=== PATIENT | female | born 1935 | race African-American/Black ===

== ENCOUNTER 2020-12-08 15:32 | Inpatient (IN) | payer MEDICARE, MEDICAID ==
[~2020-12-08] VITALS: Ht 162.6 cm; Wt 52.2 kg
[2020-12-08 16:23] LABS: BASOPHILS % 0.7 % (0.0-2.0); EOSINOPHILS % 0.1 % (0.0-5.0); HEMATOCRIT. 30.5 % (36.0-48.0); LYMPHOCYTES % 35.1 % (20.0-50.0); MEAN CORPUSCULAR VOLUME 94.9 fL (81.0-99.0); MONOCYTES % 10.7 % (2.0-8.0); NEUTROPHILS % 53.4 % (40.0-76.0); PLATELET 221 x1000/uL (130-400); RED BLOOD CELL COUNT 3.21 mill/uL (4.2-5.4); RED CELL DISTRIBUTION WIDTH 13.6 % (11.6-14.6)
[2020-12-08 16:27] LABS: CHLORIDE 112 mEq/L (98-107)
[2020-12-08] MEDS ORDERED: ATROPINE SULFATE 1MG/ML VIAL IV ONE (17:15)
[2020-12-08] MEDS ORDERED: PANTOPRAZOLE 80 MG in SODIUM CHLORIDE 0.9% 100 ML IV SCH ×2 (18:00→18:15)
[2020-12-08] MEDS ORDERED: NITROGLYCERIN 0.4MG TABLET SL SL PRN (18:15)
[2020-12-08] MEDS ORDERED: MORPHINE SULFATE 2 MG/ML CPJ (NOT FOR IM USE) IV PRN (18:15)
[2020-12-08] MEDS ORDERED: GUAIFENESIN 200MG/10ML SUGAR FREE UDC PO PRN (18:15)
[2020-12-08] MEDS ORDERED: IPRATROPIUM/ALBUTEROL 0.5-3(2.5)MG/3ML NEB NEB PRN (18:15)
[2020-12-08] MEDS ORDERED: ACETAMINOPHEN 325MG TABLET PO PRN ×2 (18:15)
[2020-12-08] MEDS: DEXT 5%/LACTATED RINGERS 1,000 ML IV SCH (18:15)
[2020-12-08] MEDS ORDERED: ONDANSETRON HCL 4MG/2ML INJ IV PRN (18:15)
[2020-12-08] MEDS ORDERED: ZOLPIDEM TARTRATE 5MG TABLET PO PRN (18:15)
[2020-12-08] MEDS ORDERED: MAGNESIUM/ALUMINUM HYDROXIDE/SIMETHICONE 30ML UDC PO PRN (18:15)
[2020-12-08 18:53] LABS: TOTAL IRON BINDING CAPACITY 312 ug/dL (250-450)
[2020-12-08] MEDS: PANTOPRAZOLE 80 MG in SODIUM CHLORIDE 0.9% 100 ML IV SCH (18:59)
[2020-12-08] MEDS ORDERED: PANTOPRAZOLE SODIUM 40 MG/VIAL IV ONE ×2 (19:02→20:32)
[2020-12-08 19:07] LABS: FOLIC ACID (FOLATE) SERUM 10.3 ng/mL (>5.38)
[2020-12-08] MEDS ORDERED: NALOXONE HCL 0.4MG/ML VIAL IV PRN (20:45)
[2020-12-09] VITALS (16 sets, daily range): BP systolic 89–162; BP diastolic 39–121
[2020-12-09] MEDS: PANTOPRAZOLE 80 MG in SODIUM CHLORIDE 0.9% 100 ML IV SCH ×2 (04:21→15:49)
[2020-12-09 04:56] LABS: CHLORIDE 120 mEq/L (98-107)
[2020-12-09 05:00] LABS: BASOPHILS % 0.2 % (0.0-2.0); EOSINOPHILS % 0.1 % (0.0-5.0); HEMATOCRIT. 22.4 % (36.0-48.0); HEMOGLOBIN. 7.6 g/dL (12.0-16.0); MEAN CORPUSCULAR HEMOGLOBIN 30.4 pg (28.0-32.0); MEAN CORPUSCULAR VOLUME 89.6 fL (81.0-99.0); MEAN PLATELET VOLUME 7.6 fl (7.4-10.4); MONOCYTES % 11.6 % (2.0-8.0); NEUTROPHILS % 57.1 % (40.0-76.0); PLATELET 131 x1000/uL (130-400); RED CELL DISTRIBUTION WIDTH 15.9 % (11.6-14.6)
[2020-12-09 05:02] LABS: PHOSPHORUS 1.6 mg/dL (2.5-4.9)
[2020-12-09 05:04] LABS: CREATINE KINASE 101 IU/L (26-192)
[2020-12-09 05:13] LABS: INR 1.1
[2020-12-09] MEDS: DEXT 5%/LACTATED RINGERS 1,000 ML IV SCH ×2 (07:10→17:43)
[2020-12-09] MEDS ORDERED: MAGNESIUM 1 G PREMIX 100 ML IV SCH (08:00)
[2020-12-09] MEDS ORDERED: POTASSIUM PHOS,M-BASIC-D-BASIC 20 MMOL in DEXT 5% WATER 243.3333 ML IV SCH (08:00)
[2020-12-09] MEDS ORDERED: ERGO1250 (15:55)
[2020-12-09] MEDS ORDERED: CLOP75TA33 MT (15:55)
[2020-12-09] MEDS ORDERED: ASPI-986 PO (15:55)
[2020-12-09] MEDS ORDERED: LETR2.5T7 PO (15:55)
[2020-12-09] MEDS ORDERED: AMLO5TAB88 MT (15:55)
[2020-12-09] MEDS ORDERED: HYDR-4134 MT (15:55)
[2020-12-09] MEDS ORDERED: PNEUMOCOCCAL 23-VAL P-SAC VAC 0.5 ML IM ONE (16:30)
[2020-12-09 16:35] LABS: CLARITY URINE CLEAR (CLEAR); COLOR URINE YELLOW (YELLOW); KETONES URINE NEGATIVE (NEGATIVE); LEUKOCYTE ESTERASE URINE NEGATIVE (NEGATIVE); NITRITE URINE NEGATIVE (NEGATIVE); OCCULT BLOOD URINE NEGATIVE (NEGATIVE); PH URINE 7.5 (4.5-8.0); PROTEIN URINE NEGATIVE (NEGATIVE); SPECIFIC GRAVITY URINE 1.029 (1.005-1.030); UROBILINOGEN URINE 0.2 E.U./dL (0.2-1.0)
[2020-12-09] MEDS: CLONIDINE 0.1MG TABLET PO PRN (16:56)
[2020-12-09 16:57] LABS: CREATINE KINASE 221 IU/L (26-192)
[2020-12-09] MEDS: AMLODIPINE 10MG TABLET PO SCH (17:15)
[2020-12-09 20:14] LABS: HEMATOCRIT 23.6 % (36.0-48.0); HEMOGLOBIN 8.2 g/dL (12.0-16.0)
[2020-12-09] MEDS: IRON SUCROSE COMPLEX 100 MG/5 ML ML IV SCH (20:41)
[2020-12-10] VITALS (36 sets, daily range): BP systolic 94–218; BP diastolic 52–96
[2020-12-10] MEDS: PANTOPRAZOLE 80 MG in SODIUM CHLORIDE 0.9% 100 ML IV SCH (00:19)
[2020-12-10 01:10] LABS: HEMATOCRIT 22.7 % (36.0-48.0); HEMOGLOBIN 7.9 g/dL (12.0-16.0)
[2020-12-10] MEDS: DEXT 5%/LACTATED RINGERS 1,000 ML IV SCH (05:22)
[2020-12-10 05:42] LABS: BASOPHILS % 0.2 % (0.0-2.0); EOSINOPHILS % 0.6 % (0.0-5.0); HEMATOCRIT. 22.3 % (36.0-48.0); LYMPHOCYTES % 29.6 % (20.0-50.0); MEAN CORPUSCULAR HEMOGLOBIN 31.7 pg (28.0-32.0); MEAN CORPUSCULAR VOLUME 88.6 fL (81.0-99.0); MEAN PLATELET VOLUME 7.4 fl (7.4-10.4); MONOCYTES % 9.3 % (2.0-8.0); NEUTROPHILS % 60.3 % (40.0-76.0); PLATELET 119 x1000/uL (130-400); RED BLOOD CELL COUNT 2.52 mill/uL (4.2-5.4); RED CELL DISTRIBUTION WIDTH 14.8 % (11.6-14.6)
[2020-12-10 05:51] LABS: CHLORIDE 115 mEq/L (98-107)
[2020-12-10 05:59] LABS: PHOSPHORUS 1.6 mg/dL (2.5-4.9)
[2020-12-10] MEDS: AMLODIPINE 10MG TABLET PO SCH (07:48)
[2020-12-10] MEDS ORDERED: IOHEXOL-300 100 ML BOTTLE ONE (09:59)
[2020-12-10 13:07] LABS: HEMATOCRIT 24.7 % (36.0-48.0); HEMOGLOBIN 8.3 g/dL (12.0-16.0)
[2020-12-10] MEDS ORDERED: METOCLOPRAMIDE HCL 10MG/2ML VIAL IV SCH (16:30)
[2020-12-10] MEDS ORDERED: BISACODYL 5MG TABLET PO SCH (16:30)
[2020-12-10] MEDS ORDERED: POTASSIUM CHLORIDE 20MEQ TABLET SR PO NR (17:15)
[2020-12-10] MEDS: PANTOPRAZOLE SODIUM 40 MG/VIAL IV SCH (17:39)
[2020-12-10] MEDS: SORBITOL 70% SOLN 30ML PO SCH ×2 (17:40→21:25)
[2020-12-10] MEDS ORDERED: BISACODYL 5MG TABLET PO ONE (18:00)
[2020-12-10 18:25] LABS: HEMATOCRIT 23.7 % (36.0-48.0); HEMOGLOBIN 8.3 g/dL (12.0-16.0)
[2020-12-10] MEDS: BISACODYL 5MG TABLET PO SCH ×2 (19:03→21:24)
[2020-12-10] MEDS: DEXT 5%/0.45% NACL 1000ML 1,000 ML IV SCH (21:23)
[2020-12-10] MEDS: METOCLOPRAMIDE HCL 10MG/2ML VIAL IV SCH (21:24)
[2020-12-10 23:04] LABS: HEMATOCRIT 26.4 % (36.0-48.0)
[2020-12-11] VITALS (12 sets, daily range): BP systolic 103–136; BP diastolic 58–91
[2020-12-11] MEDS ORDERED: SORBITOL 70% SOLN 30ML PO NR (04:30)
[2020-12-11] MEDS: METOCLOPRAMIDE HCL 10MG/2ML VIAL IV SCH (04:58)
[2020-12-11] MEDS: BISACODYL 5MG TABLET PO SCH (04:59)
[2020-12-11] MEDS: DEXT 5%/0.45% NACL 1000ML 1,000 ML IV SCH (07:07)
[2020-12-11 07:14] LABS: BASOPHILS % 0.1 % (0.0-2.0); EOSINOPHILS % 0.2 % (0.0-5.0); HEMATOCRIT. 25.9 % (36.0-48.0); HEMOGLOBIN. 9.1 g/dL (12.0-16.0); LYMPHOCYTES % 16.1 % (20.0-50.0); MEAN CORPUSCULAR HEMOGLOBIN 31.5 pg (28.0-32.0); MEAN CORPUSCULAR VOLUME 89.9 fL (81.0-99.0); MEAN PLATELET VOLUME 7.9 fl (7.4-10.4); MONOCYTES % 10.6 % (2.0-8.0); PLATELET 183 x1000/uL (130-400); RED BLOOD CELL COUNT 2.88 mill/uL (4.2-5.4); RED CELL DISTRIBUTION WIDTH 14.5 % (11.6-14.6)
[2020-12-11 07:26] LABS: PROTHROMBIN TIME 10.8 sec (9.6-11.0)
[2020-12-11 07:40] LABS: CHLORIDE 124 mEq/L (98-107)
[2020-12-11] MEDS: AMLODIPINE 10MG TABLET PO SCH (08:17)
[2020-12-11] MEDS: PANTOPRAZOLE SODIUM 40 MG/VIAL IV SCH ×2 (08:21→17:48)
[2020-12-11] MEDS ORDERED: KCL 20MEQ/100ML PREMIX 100 ML IV SCH (12:00)
[2020-12-11] MEDS ORDERED: MIDAZOLAM HCL 5 MG/5 ML VIAL ONE (13:09)
[2020-12-11] MEDS ORDERED: FENTANYL CITRATE/PF 50MCG/ML 2ML VIAL ONE (13:09)
[2020-12-11] MEDS ORDERED: SIMETHICONE 40 MG/0.6 ML 30ML ONE (13:09)
[2020-12-11] MEDS ORDERED: MIDAZOLAM HCL 2 MG/2 ML VIAL IV PRN (13:15)
[2020-12-11] MEDS ORDERED: FENTANYL CITRATE/PF 50MCG/ML 2ML VIAL IV PRN (13:19)
[2020-12-11] MEDS: CLONIDINE 0.1MG TABLET PO PRN (15:47)
[2020-12-11] MEDS: IRON SUCROSE COMPLEX 100 MG/5 ML ML IV SCH (20:24)
[2020-12-12] VITALS (13 sets, daily range): BP systolic 91–154; BP diastolic 50–99
[2020-12-12] MEDS: DEXT 5%/0.45% NACL 1000ML 1,000 ML IV SCH (01:02)
[2020-12-12] MEDS: PANTOPRAZOLE SODIUM 40 MG/VIAL IV SCH ×2 (08:39→16:57)
[2020-12-12] MEDS: AMLODIPINE 10MG TABLET PO SCH (08:39)
[2020-12-13] VITALS (7 sets, daily range): BP systolic 105–138; BP diastolic 53–86
[2020-12-13] MEDS: AMLODIPINE 10MG TABLET PO SCH (09:10)
[2020-12-13] MEDS: PANTOPRAZOLE SODIUM 40 MG/VIAL IV SCH (09:11)
== END 2020-12-13 12:15 | disposition home health service (06) | DRG 377 ==
LOC: ER 15:32 → MICUSO 17:57 → SUPCPDRO 18:09 → EDBEDREQSVC 18:59 → CVICU 12-09 14:23 → 3WST 12-10 16:46
PROVIDERS: ADMIT Internal Medicine; ATTEND Internal Medicine
PROC: 30233N1 Transfusion of Nonautologous Red Blood Cells into Peripheral Vein, Percutaneous Approach (ICD-10-PCS; principal; 2020-12-08)
PROC: 0DB78ZX Excision of Stomach, Pylorus, Via Natural or Artificial Opening Endoscopic, Diagnostic (ICD-10-PCS; 2020-12-11)
PROC: 0DJD8ZZ Inspection of Lower Intestinal Tract, Via Natural or Artificial Opening Endoscopic (ICD-10-PCS; 2020-12-11)
DX: K29.61 Other gastritis with bleeding (principal); R57.8 Other shock; E44.0 Moderate protein-calorie malnutrition; Z68.1 Body mass index [BMI] 19.9 or less, adult; E87.0 Hyperosmolality and hypernatremia; K57.31 Diverticulosis of large intestine without perforation or abscess with bleeding; D50.9 Iron deficiency anemia, unspecified; F17.210 Nicotine dependence, cigarettes, uncomplicated; I10 Essential (primary) hypertension; I95.9 Hypotension, unspecified; K80.20 Calculus of gallbladder without cholecystitis without obstruction; R55 Syncope and collapse; E83.39 Other disorders of phosphorus metabolism; Z20.822 Contact with and (suspected) exposure to COVID-19; R00.1 Bradycardia, unspecified; M81.0 Age-related osteoporosis without current pathological fracture; E87.6 Hypokalemia; K64.8 Other hemorrhoids; Z79.82 Long term (current) use of aspirin; Z85.3 Personal history of malignant neoplasm of breast; Z92.21 Personal history of antineoplastic chemotherapy; Z92.3 Personal history of irradiation; Z88.0 Allergy status to penicillin; Z88.5 Allergy status to narcotic agent
CPT/HCPCS: 36415; 71045; 74177; 76700; 80053; 81003; 82270; 82550; 82553; 82607; 82728; 82746; 82962; 83540; 83550; 83735; 83880; 84100; 84484; 85014; 85018; 85025; 86850; 86900; 86920; 87426; 88305; 88312; 88313; 90732; 93005; 93970; 97162; 97166; 99291; C9113; J0461; J2250; J2765; J3010; J3475; J3480; J3490; J7050; J7060; P9016; Q9967; A4315